=== PATIENT | female | born 1960 | race Caucasian/White ===

== ENCOUNTER 2017-11-10 11:01 | Emergency (ER) | payer BC ==
[2017-11-10] MEDS ORDERED: Promethazine 25 MG Supp RECTAL STA (11:07)
--- NOTE | 2017-11-10 11:37 | EDM.PDOC ---
ED HPI GENERAL MEDICAL PROBLEM - General Chief Complaint: Gastrointestinal Problem Stated Complaint: DEHYDRATION Time Seen by Provider: 11/10/17 11:15 Source of Information: Reports: Patient, RN History Limitations: Reports: No Limitations - History of Present Illness INITIAL COMMENTS - FREE TEXT/NARRATIVE: 57 yo female was seen in the clinic 2 days ago for a cough with nausea/ vomiting. She was given doxycycline only which has not helped so far. No testing was done. No fever. No diarrhea. No hematemesis. No known exposures. Cough is occasionally productive. No rash. No abdominal pain. Comes today hoping for medicine for nausea. Is on Celexa for depression. Onset: Gradual Onset Date: 11/07/17 Duration: Day(s):, Constant Location: Reports: Chest, Abdomen Quality: Reports: Other (Her only pain it to the L lower/anterior chest associated with coughing. ) Severity: Mild Improves with: Reports: Rest Worsens with: Reports: Movement Context: Reports: Other (coughing often) Associated Symptoms: Reports: Cough, Nausea/Vomiting. 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) - Related Data Allergies Allergy/AdvReac Type Severity Reaction Status Date / Time acetaminophen [From Tylenol] Allergy Hives Verified 11/10/17 11:16 Home Meds: Home Meds Calcium Carb/Magnesium Hydrox [Rolaids Chewable Tablet] 1 - 2 tab PO DAILY PRN 10/06/15 [History] Citalopram Hydrobromide [Celexa] 10 mg PO DAILY 10/06/15 [History] Multivitamin [Multi-Vitamin Daily] 1 tab PO DAILY 10/06/15 [History] Aspirin [Children's Aspirin] 81 mg PO DAILY 10/08/15 [History] Simvastatin [Zocor] 20 mg PO BEDTIME 10/08/15 [History] Codeine/guaiFENesin [Robitussin AC] 5 - 10 ml PO Q4H PRN #236 liquid 11/10/17 [ Rx] Doxycycline Monohydrate 100 mg PO BID 11/10/17 [History] Promethazine [Phenadoz] 25 mg RC Q6H PRN #10 supp 11/10/17 [Rx] Past Medical History HEENT History: Reports: Impaired Vision Other HEENT History: wears glasses Cardiovascular History: Reports: Heart Murmur, High Cholesterol Respiratory History: Reports: Asthma Other Respiratory History: "allergy induced asthma" Gastrointestinal History: Reports: Hemorrhoids 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: Psychiatric History: Reports: Anxiety Dermatologic History: Reports: Eczema - Infectious Disease History Infectious Disease History: Reports: Chicken Pox - Past Surgical History HEENT Surgical History: Reports: Oral Surgery GI Surgical History: Reports: Cholecystectomy Social & Family History - Family History Family Medical History: Noncontributory - Tobacco Use Smoking Status *Q: Unknown Ever Smoked Second Hand Smoke Exposure: No - Recreational Drug Use Recreational Drug Use: No ED ROS GENERAL - Review of Systems Review Of Systems: See Below Constitutional: Reports: No Symptoms HEENT: Reports: No Symptoms Respiratory: Reports: Cough, Sputum (minimal). Denies: Shortness of Breath, Wheezing, Pleuritic Chest Pain, Hemoptysis Cardiovascular: Reports: No Symptoms Endocrine: Reports: No Symptoms GI/Abdominal: Reports: Decreased Appetite, Nausea, Vomiting. Denies: Abdominal Pain, Black Stool, Bloody Stool, Constipation, Diarrhea, Distension, Flatus, Hematemesis, Hematochezia, Melena, Stool Incontinence : Reports: No Symptoms Musculoskeletal: Reports: Other (Has mild lower/anterior/left chest pain with coughing) Skin: Reports: No Symptoms Neurological: Reports: No Symptoms Psychiatric: Reports: No Symptoms ED EXAM, GI/ABD - Physical Exam Exam: See Below Exam Limited By: No Limitations General Appearance: Alert, WD/WN, No Apparent Distress Eyes: Bilateral: Normal Appearance Ears: Normal External Exam, Normal Canal, Hearing Grossly Normal, Normal TMs Nose: Normal Inspection, Normal Mucosa, No Blood Throat/Mouth: Normal Inspection, Normal Lips, Normal Oropharynx, Normal Voice, No Airway Compromise Head: Atraumatic, Normocephalic Neck: Normal Inspection Respiratory/Chest: No Respiratory Distress, Lungs Clear, Normal Breath Sounds, No Accessory Muscle Use, Other (localized tenderness over the ribs of the lower L anterior chest wall. ) Cardiovascular: Regular Rate, Rhythm, No Edema GI/Abdominal Exam: Normal Bowel Sounds, Soft, Non-Tender, No Distention Back Exam: Normal Inspection. No: CVA Tenderness (R), CVA Tenderness (L) Extremities: Normal Inspection, Normal Range of Motion, Non-Tender, No Pedal Edema Neurological: Alert, Oriented, CN II-XII Intact, Normal Cognition, No Motor/ Sensory Deficits Psychiatric: Normal Affect, Normal Mood Skin Exam: Warm, Dry, Intact, Normal Color, No Rash Lymphatic: No Adenopathy Course - Vital Signs Last Recorded V/S: Last Vital Signs Temp 35.9 C 11/10/17 11:19 Pulse 76 11/10/17 11:19 Resp 16 11/10/17 11:19 BP 122/72 11/10/17 11:19 Pulse Ox 99 11/10/17 11:19 Orthostatic Blood Pressure [ 100/68 Standing] Orthostatic Blood Pressure [ 115/70 Sitting] Orthostatic Blood Pressure [ 118/71 Supine] - Orders/Labs/Meds Orders: Active Orders 24 hr Category Date Time Status Orthostatic Vital Signs [RC] ASDIRECTED Care 11/10/17 11:07 Active Lactated Ringers [Ringers, Lactated] 1,000 ml Med 11/10/17 11:43 Active IV BOLUS Medication Orders Lactated Ringer's (Ringers, Lactated) 1,000 mls @ 1,000 mls/hr IV BOLUS ONE Stop: 11/10/17 12:42 Last Admin: 11/10/17 12:01 Dose: 1,000 mls/hr Labs: Laboratory Tests 11/10/17 11/10/17 Range/Units 11:31 11:43 WBC 4.4 L (4.5-11.0) K/uL RBC 4.96 (3.30-5.50) M/uL Hgb 13.9 (12.0-15.0) g/dL Hct 41.9 (36.0-48.0) % MCV 85 (80-98) fL MCH 28 (27-31) pg MCHC 33 (32-36) % Plt Count 246 (150-400) K/uL Sodium 142 (140-148) mmol/L Potassium 3.9 (3.6-5.2) mmol/L Chloride 105 (100-108) mmol/L Carbon Dioxide 26 (21-32) mmol/L Anion Gap 10.8 (5.0-14.0) mmol/L BUN 16 (7-18) mg/dL Creatinine 0.7 (0.6-1.0) mg/dL Est Cr Clr Drug Dosing 67.72 mL/min Estimated GFR (MDRD) > 60 (>60) Glucose 93 (74-106) mg/dL Calcium 8.4 L (8.5-10.1) mg/dL Meds: Medications Generic Name Dose Route Start Last Admin Trade Name Freq PRN Reason Stop Dose Admin Lactated Ringer's 1,000 mls @ 1,000 mls/hr 11/10/17 11:43 11/10/17 12:01 Ringers, Lactated IV 11/10/17 12:42 1,000 mls/hr BOLUS ONE Administration Discontinued Medications Generic Name Dose Route Start Last Admin Trade Name Freq PRN Reason Stop Dose Admin Diphenhydramine HCl 25 mg 11/10/17 11:44 11/10/17 12:00 Benadryl IVPUSH 11/10/17 11:45 25 mg ONETIME ONE Administration Prochlorperazine Edisylate 10 mg 11/10/17 11:43 11/10/17 12:01 Compazine IVPUSH 11/10/17 11:44 10 mg ONETIME ONE Administration Promethazine HCl 25 mg 11/10/17 11:07 Phenadoz RECTAL 11/10/17 11:08 NOW STA Departure - Departure Time of Disposition: 12:35 Disposition: Home, Self-Care 01 Condition: Good Clinical Impression: Viral respiratory illness, Cough Nausea & vomiting Qualifiers: Vomiting type: unspecified Vomiting Intractability: non-intractable Qualified Code(s): R11.2 - Nausea with vomiting, unspecified - Discharge Information Prescriptions: Codeine/guaiFENesin [Robitussin AC] 5 - 10 ml PO Q4H PRN #236 liquid PRN Reason: Cough Promethazine [Phenadoz] 25 mg RC Q6H PRN #10 supp PRN Reason: Nausea Referrals: Lionel Lindo MD [Primary Care Provider] - Forms: ED Department Discharge Additional Instructions: Stop the doxycycline. Take Robitussin as needed for your coughing. Use the Promethazine as needed for your nausea/vomiting. Recheck here or in the clinic as needed. - My Orders Last 24 Hours: My Active Orders 11/10/17 11:07 Orthostatic Vital Signs [RC] ASDIRECTED 11/10/17 11:43 Lactated Ringers [Ringers, Lactated] 1,000 ml IV BOLUS - Assessment/Plan Last 24 Hours: My Active Orders 11/10/17 11:07 Orthostatic Vital Signs [RC] ASDIRECTED 11/10/17 11:43 Lactated Ringers [Ringers, Lactated] 1,000 ml IV BOLUS
[2017-11-10] MEDS ORDERED: Prochlorperazine 10 MG/2 ML SDV IVPUSH ONE (11:43)
[2017-11-10] MEDS ORDERED: Lactated Ringers 1,000 ML IV ONE (11:43)
[2017-11-10] MEDS ORDERED: diphenhydrAMINE 50 MG/ML SDV IVPUSH ONE (11:44)
[2017-11-10 13:02] VITALS: BP 123/87
== END 2017-11-10 13:10 | disposition home or self-care (01) ==
LOC: JP.ED 11:01
DX: J98.9 Respiratory disorder, unspecified (principal); B97.89 Other viral agents as the cause of diseases classified elsewhere; E78.00 Pure hypercholesterolemia, unspecified; J45.909 Unspecified asthma, uncomplicated; Z88.6 Allergy status to analgesic agent; Z79.899 Other long term (current) drug therapy; Z79.82 Long term (current) use of aspirin
CPT/HCPCS: 36415; 80048; 85027; 96361; 96374; 96375; 99284; J0780; J1200; J7120

== ENCOUNTER 2024-09-27 10:54 | Emergency (ER) | payer OTHER ==
[2024-09-27] MEDS: Sodium Chloride 0.9% 1,000 ML IV ONE (11:12)
[2024-09-27 11:13] LABS: HEMATOCRIT 39.2 % (34.3-46.0); HEMOGLOBIN 13.4 g/dL (11.2-15.5); RED BLOOD CELL COUNT 4.53 M/uL (3.77-5.24); WHITE BLOOD CELL COUNT,WBC 6.7 K/uL (3.2-11.0)
[2024-09-27 11:14] LABS: BASOPHILS ABSOLUTE AUTO 0.04 K/uL (0.00-0.10); BASOPHILS PERCENT AUTO 0.6 % (0.1-1.3); EOSINOPHILS ABSOLUTE AUTO 0.34 K/uL (0.00-0.40); EOSINOPHILS PERCENT AUTO 5.1 % (0.0-5.4); IMMATURE GRAN PERCENT AUTO 0.3 % (0.0-0.7); LYMPHOCYTES ABSOLUTE AUTO 1.92 K/uL (0.8-3.3); LYMPHOCYTES PERCENT AUTO 28.5 % (11.4-47.7); MEAN CORPUSCULAR HEMOGLOBIN 29.6 pg (31.6-35.5); MEAN CORPUSCULAR HGB CONC 34.2 g/dL (31.6-35.5); MEAN CORPUSCULAR VOLUME 86.5 fL (81.4-99.0); MONOCYTES PERCENT AUTO 7.4 % (3.3-12.6); NEUTROPHILS ABSOLUTE AUTO 3.91 K/uL (1.0-7.6); NEUTROPHILS PERCENT AUTO 58.1 % (40.0-78.1); PLATELET COUNT,PLT 319 K/uL (130-375)
[2024-09-27 11:19] LABS: IMMATURE GRAN ABSOLUTE AUTO 0.02 K/uL (0.00-0.23)
[2024-09-27 11:35] VITALS: BP 111/58; PULSE 77
[2024-09-27 11:41] LABS: ALANINE AMINOTRANSFERASE,ALT 28 U/L (12-78); ALBUMIN 3.5 g/dL (3.4-5.0); ALKALINE PHOSPHATASE 88 U/L (46-116); ASPARTATE AMNIOTRANSFERASE,AST 23 U/L (15-37); BILIRUBIN TOTAL 0.4 mg/dL (0.2-1.0); BLOOD UREA NITROGEN,BUN 13 mg/dL (7-18); CALCIUM 8.8 mg/dL (8.5-10.1); CARBON DIOXIDE,CO2 26 mmol/L (21-32); CHLORIDE,CL 101 mmol/L (100-108); CREATININE 0.8 mg/dL (0.6-1.0); EST CRCL DRUG DOSING (CG) 54.31 mL/min; ESTIMATED GFR 83 mL/min (>60); GLUCOSE RANDOM 92 mg/dL (74-106); MAGNESIUM 1.8 mg/dL (1.8-2.4); POTASSIUM,K 4.3 mmol/L (3.6-5.2); SODIUM,NA 138 mmol/L (140-148)
[2024-09-27 11:53] LABS: ANION GAP 15.3 mmol/L (5.0-14.0)
== END 2024-09-27 13:02 | disposition home or self-care (01) ==
LOC: JP.ED 10:54
DX: R55 Syncope and collapse (principal); J01.90 Acute sinusitis, unspecified; E78.00 Pure hypercholesterolemia, unspecified; Z90.49 Acquired absence of other specified parts of digestive tract; Z86.16 Personal history of COVID-19; Z79.82 Long term (current) use of aspirin; Z79.899 Other long term (current) drug therapy; Z88.6 Allergy status to analgesic agent
CPT/HCPCS: 36415; 70450; 70450-26; 80053; 83735; 85025; 93005; 96360; 99284-25